=== PATIENT | female | born 2000 | race Caucasian/White ===

== ENCOUNTER 2024-02-25 15:12 | Emergency (ER) | payer MEDICAID ==
[~2024-02-25] VITALS: Ht 167.6 cm; Wt 82.0 kg
[2024-02-25 15:32] VITALS: O2SAT 99
[2024-02-25 17:13] LABS: EOSINOPHILS % 0.1 % (0.0-5.0); HEMATOCRIT. 42.2 % (36.0-48.0); HEMOGLOBIN. 14.3 g/dL (12.0-16.0); LYMPHOCYTES % 11.9 % (20.0-50.0); MEAN CORPUSCULAR HEMOGLOBIN 27.3 pg (28.0-32.0); MEAN CORPUSCULAR HGB CONC 33.9 g/dL (31.0-37.0); MEAN CORPUSCULAR VOLUME 80.5 fL (81.0-99.0); MONOCYTES % 8.5 % (2.0-8.0); NEUTROPHILS % 79.5 % (40.0-76.0); PLATELET 332 x1000/uL (130-400); RED BLOOD CELL COUNT 5.24 mill/uL (4.2-5.4); RED CELL DISTRIBUTION WIDTH 15.5 % (11.6-14.6); WHITE BLOOD COUNT 12.7 x1000/uL (4.5-11.0)
[2024-02-25 17:21] LABS: CHLORIDE 107 mEq/L (98-107); POTASSIUM 3.9 mEq/L (3.5-5.1); SODIUM 139 mEq/L (136-145)
[2024-02-25 17:22] LABS: CALCIUM 9.5 mg/dL (8.7-10.4); CARBON DIOXIDE 25 mEq/L (21-32)
[2024-02-25 17:27] LABS: CREATININE 0.8 mg/dL (0.6-1.0); GLUCOSE 103 mg/dL (70-105); UREA NITROGEN BLOOD 7 mg/dL (9-23)
[2024-02-25 19:50] LABS: HCG SCREEN NEGATIVE
[2024-02-25] MEDS ORDERED: IBUP-2029 MT (20:48)
[2024-02-25] MEDS: KETOROLAC 30MG/ML VIAL IM ONE (21:15)
[2024-02-25 21:30] VITALS: BP 126/75; PULSE 79; RESP 16; TEMP 36.66960; O2SAT 100
== END 2024-02-25 21:31 | disposition home or self-care (01) ==
LOC: ER 15:12
DX: R07.89 Other chest pain (principal); R51.9 Headache, unspecified; R10.9 Unspecified abdominal pain
CPT/HCPCS: 80048; 84703; 85025; 36415; 74176; 96372; 99285; J1885; Z7610